=== PATIENT | male | born 1975 | race Caucasian/White ===

== ENCOUNTER 2020-09-14 16:33 | Emergency (ER) | payer BC ==
[~2020-09-14] VITALS: Ht 193 cm; Wt 104.3 kg
[2020-09-14] MEDS ORDERED: EPINEPHRINE 1 MG/1 ML AMP ONE ×2 (16:55→17:17)
[2020-09-14] MEDS ORDERED: methylPREDNISolone SOD SUCC 125 MG/2 ML VIAL ONE (16:59)
[2020-09-14] MEDS ORDERED: diphenhydrAMINE 50 MG/1 ML VIAL ONE (16:59)
[2020-09-14] MEDS ORDERED: EPINEPHRINE 1 MG/1 ML AMP IM ONE ×3 (17:00→17:45)
[2020-09-14] MEDS ORDERED: methylPREDNISolone SOD SUCC 125 MG/2 ML VIAL IV ONE (17:00)
[2020-09-14] MEDS ORDERED: diphenhydrAMINE 50 MG/1 ML VIAL IV ONE (17:00)
[2020-09-14] MEDS ORDERED: FAMOTIDINE. 20 MG/2 ML VIAL IV ONE ×2 (17:00)
[2020-09-14] MEDS ORDERED: EPINEPHRINE 1:10,000 1 MG/10 ML DISP.SYRIN ONE (17:14)
[2020-09-14] MEDS ORDERED: ALBUTEROL SULFATE 2.5 MG/3 ML NEBU NEB ONE (17:15)
--- NOTE | 2020-09-14 17:20 | NUR ---
Taken over pt care at this time.
[2020-09-14] MEDS ORDERED: ALBUTEROL SULFATE 2.5 MG/3 ML NEBU ONE (17:29)
--- NOTE | 2020-09-14 17:34 | NUR ---
Pt states feeling better and his voice get back to normal. VSS.
--- NOTE | 2020-09-14 19:40 | NUR ---
Patient discharged to home in stable condition. Written and verbal after care instructions given. Patient verbalizes understanding of instructions. Stressed follow up or return to ER for worsening s/s. Steady gait. Instructed not to drive. Education given. Belongings with patient.
[2020-09-14 19:41] VITALS: BP 114/76
--- NOTE | 2020-09-15 08:48 | NUR ---
Called and spoke to the patient, stressed the need to continue medications and to always carry an epipen. Called in presciptions to [facility] [phone]. benadryl, prednisone, pepcid and epipen prescriptions
== END 2020-09-14 19:42 | disposition home or self-care (01) ==
LOC: ER 16:35
DX: T63.441A Toxic effect of venom of bees, accidental (unintentional), initial encounter (principal); T78.2XXA Anaphylactic shock, unspecified, initial encounter; Y92.89 Other specified places as the place of occurrence of the external cause
CPT/HCPCS: 94640; 96372; 96374; 96375; 99291; J0171 ×3; J1200; J2930; J3490